=== PATIENT | female | born 1995 | race Caucasian/White ===

== ENCOUNTER 2016-07-28 13:17 | Inpatient (IN) | payer BC, OTHER ==
[2016-07-28] VITALS (7 sets, daily range): BP systolic 133–143; BP diastolic 82–103; PULSE 119–136; TEMP 36.7–37; O2SAT 95–100; Ht 152.4 cm; Wt 46.1 kg
[~2016-07-28] VITALS: Ht 152.4 cm; Wt 46.1 kg
[~2016-07-28 13:17] MED LIST: CEPH500C PO; MULT-506 PO
[2016-07-28] MEDS ORDERED: SODIUM CHLORIDE 0.9% 1000ML 1,000 ML IV STA ×2 (13:33→15:33)
[2016-07-28] MEDS ORDERED: LORAZEPAM 2 MG/ML 1 ML VIAL IV STA ×4 (13:33→16:43)
--- NOTE | 2016-07-28 13:41 | EMERGENCY ROOM VISIT NOTE ---
History Report prepared by Pramod: Arnav Frye Under the Supervision of: Dr. Akbar Osorio M.D. First contact with patient: 13:29 Chief Complaint: OVERDOSE (INTENTIONAL) Stated Complaint: INTENTIONAL OVERDOSE History of Present Illness The patient is a 21 year old female who presents to the Emergency Room with complaints of a sudden intentional overdose that occurred prior to arrival today. Per the patient's mother, the patient's boyfriend broke up with the patient today, and that was the precipitating factor for the overdose. The patient has no history of medication overdose. She states that she overdosed on Zoloft, Wellbutrin, and Ambien. The patient notes that she took 7 pills of one medication, and 5 pills and 2 pills of the others. She did not take any Tylenol or Motrin. She says that she did not drink or do any drugs today. She currently has some abdominal pain and nausea. The patient denies any falls or cuts. Per the patient's mother, the patient has expressed suicidal ideations recently due to fighting with her boyfriend for the past month. She has also been anxious and depressed due to the fighting. The patient has been seeing Dr. Huang regularly. She has never been admitted for depression before. HPI limited secondary to severe anxiety. Source of History: patient, parent History Limited By: other (severe anxiety) Onset: Prior to arrival Position: other (global - overdose) Quality: other (intentional) Timing: other (sudden) Associated Symptoms: + abdominal pain, + nausea Note: Associated symptoms: Denies any falls or cuts. Has been anxious and depressed for past month. Review of Systems ROS limited secondary to severe anxiety. Past Medical & Surgical Medical Problems: (1) No chronic problems (2) Suicide attempt by multiple drug overdose Family History No pertinent family history Social History Smoking Status: Never Smoker Marital Status: single Housing Status: lives with family Current/Historical Medications Scheduled Control Pills ( Control Pills), 1 TAB PO DAILY Bupropion (Wellbutrin), 100 MG PO DAILY Progesterone (Prometrium), 100 MG PO DAILY Pyridoxine (Vitamin B6), 100 MG PO DAILY Sertraline (Zoloft), 100 MG PO DAILY Zolpidem Tartrate (Ambien), 5 MG PO HS Allergies Coded Allergies: No Known Allergies (Unverified , NONE, 07/28/16) Physical Exam Vital Signs Date Time Temp Pulse Resp B/P Pulse Ox O2 Delivery O2 Flow Rate FiO2 07/28/16 16:14 129 20 138/91 98 Room Air 07/28/16 15:59 132 21 134/92 98 Room Air 07/28/16 15:45 139 22 140/99 98 Room Air 07/28/16 15:30 120 24 136/90 100 Room Air 07/28/16 15:14 132 24 130/93 100 Room Air 07/28/16 14:59 130 22 130/91 100 Room Air 07/28/16 14:44 118 25 129/98 100 Room Air 07/28/16 14:29 123 135/100 100 Room Air 07/28/16 14:20 126 22 100 Room Air 07/28/16 14:15 126 20 130/83 07/28/16 14:12 132/91 07/28/16 14:07 129 23 100 Room Air 07/28/16 13:59 133/97 07/28/16 13:58 134/93 07/28/16 13:58 19 134/93 100 Room Air 07/28/16 13:54 85/65 07/28/16 13:52 133 30 100 07/28/16 13:47 123 25 85/65 100 Room Air 07/28/16 13:45 142 25 153/142 100 Room Air 07/28/16 13:35 135 07/28/16 13:33 98 Room Air 07/28/16 13:30 145 25 145/107 100 Room Air 07/28/16 13:21 36.8 116 22 153/100 96 Room Air Physical Exam GENERAL: Patient is severely anxious appearing and in moderate distress. Shaking , crying, difficulty speaking due to severe anxiety. HEENT: No acute trauma, normocephalic atraumatic, mucous membranes moist, no nasal congestion, no scleral icterus. NECK: No stridor, no adenopathy, no meningismus, trachea is midline. LUNGS: No dyspnea. Clear to auscultation and equal bilaterally. No wheeze, no rhonchi. HEART: Tachycardic heart rate and regular rhythm. No murmurs, rubs, gallops appreciated. ABDOMEN: Soft, nontender, bowel sounds positive, no masses appreciated, no peritonitis. BACK: No midline tenderness, no CVA tenderness EXTREMITIES: Normal motion all extremities, no cyanosis, no edema. NEUROLOGIC: Alert and oriented, no acute motor or sensory deficits, no focal weakness, cranial nerves grossly intact. SKIN: No rash, no jaundice, no diaphoresis. Medical Decision & Procedures Laboratory Results 07/28/16 13:45 Red Blood Count 5.42, Mean Corpuscular Volume 80.1, Mean Corpuscular Hemoglobin 29.7, Mean Corpuscular Hemoglobin Concent 37.1, Mean Platelet Volume 9.1, Neutrophils (%) (Auto) 66.1, Lymphocytes (%) (Auto) 25.4, Monocytes (%) (Auto) 6.8, Eosinophils (%) (Auto) 0.6, Basophils (%) (Auto) 0.6, Neutrophils # (Auto) 4.30, Lymphocytes # (Auto) 1.65, Monocytes # (Auto) 0.44, Eosinophils # (Auto) 0.04, Basophils # (Auto) 0.04 07/28/16 13:45 Test 07/28/16 13:35 07/28/16 13:45 Prothrombin Time 10.8 SECONDS (9.0-12.0) Prothromb Time International Ratio 1.0 (0.9-1.1) White Blood Count 6.50 K/uL (4.8-10.8) Red Blood Count 5.42 M/uL (4.2-5.4) Hemoglobin 16.1 g/dL (12.0-16.0) Hematocrit 43.4 % (37-47) Mean Corpuscular Volume 80.1 fL (80-100) Mean Corpuscular Hemoglobin 29.7 pg (25-34) Mean Corpuscular Hemoglobin Concent 37.1 g/dl (32-36) Platelet Count 320 K/uL (130-400) Mean Platelet Volume 9.1 fL (7.4-10.4) Neutrophils (%) (Auto) 66.1 % Lymphocytes (%) (Auto) 25.4 % Monocytes (%) (Auto) 6.8 % Eosinophils (%) (Auto) 0.6 % Basophils (%) (Auto) 0.6 % Neutrophils # (Auto) 4.30 K/uL (1.4-6.5) Lymphocytes # (Auto) 1.65 K/uL (1.2-3.4) Monocytes # (Auto) 0.44 K/uL (0.11-0.59) Eosinophils # (Auto) 0.04 K/uL (0-0.5) Basophils # (Auto) 0.04 K/uL (0-0.2) RDW Standard Deviation 35.8 fL (36.4-46.3) RDW Coefficient of Variation 12.4 % (11.5-14.5) Immature Granulocyte % (Auto) 0.5 % Immature Granulocyte # (Auto) 0.03 K/uL (0.00-0.02) Urine Color YELLOW Urine Appearance CLOUDY (CLEAR) Urine pH 8.5 (4.5-7.5) Urine Specific [place] 1.017 (1.000-1.030) Urine Protein NEG (NEG) Urine Glucose (UA) NEG (NEG) Urine Ketones TRACE (NEG) Urine Occult Blood TRACE (NEG) Urine Nitrite NEG (NEG) Urine Bilirubin NEG (NEG) Urine Urobilinogen NEG (NEG) Urine Leukocyte Esterase TRACE (NEG) Urine WBC (Auto) 5-10 /hpf (0-5) Urine RBC (Auto) 0-4 /hpf (0-4) Urine Hyaline Casts (Auto) 1-5 /lpf (0-5) Urine Epithelial Cells (Auto) >30 /lpf (0-5) Urine Bacteria (Auto) 2+ (NEG) Urine Test NEG (NEG) Anion Gap 11.0 mmol/L (3-11) Est Creatinine Clear Calc Drug Dose 67.5 ml/min Estimated GFR () 108.9 Estimated GFR (Non- 93.9 BUN/Creatinine Ratio 8.9 (10-20) Calcium Level 9.8 mg/dl (8.5-10.1) Total Bilirubin 0.8 mg/dl (0.2-1) Aspartate Amino Transf (AST/SGOT) 13 U/L (15-37) Alanine Aminotransferase (ALT/SGPT) 17 U/L (12-78) Alkaline Phosphatase 72 U/L (45-117) Total Protein 8.4 gm/dl (6.4-8.2) Albumin 4.3 gm/dl (3.4-5.0) Globulin 4.1 gm/dl (2.5-4.0) Albumin/Globulin Ratio 1.0 (0.9-2) Thyroid Stimulating Hormone (TSH) 1.520 uIu/ml (0.300-4.500) Salicylates Level < 1.7 mg/dl (2.8-20) Urine Opiates Screen NEG (NEG) Urine Methadone, Qualitative NEG (NEG) Acetaminophen Level < 2 ug/ml (10-30) Urine Barbiturates NEG (NEG) Urine Phencyclidine (PCP) Level NEG (NEG) Ur Amphetamine/Methamphetamine NEG (NEG) MDMA (Ecstasy) Screen POS (NEG) Urine Benzodiazepines Screen POS (NEG) Urine Cocaine Metabolite NEG (NEG) Urine Marijuana (THC) NEG (NEG) Ethyl Alcohol mg/dL < 3.0 mg/dl (0-3) Laboratory results as reviewed by me. Medications Administered Medications (Trade) Dose Ordered Sig/Lizbet Route Start Time Stop Time Status Last Admin Dose Admin Sodium Chloride (Nss 1000ml) 1,000 ml @ 999 mls/hr Q1H1M STAT IV 07/28/16 13:33 07/28/16 14:33 DC 07/28/16 13:48 999 MLS/HR Lorazepam (Ativan Inj) 1 mg NOW STAT IV 07/28/16 13:33 07/28/16 13:35 DC 07/28/16 13:48 1 MG Lorazepam 1 mg 1 mg NOW STAT IV 07/28/16 14:01 07/28/16 14:02 DC 07/28/16 14:09 1 MG Sodium Chloride (Nss 1000ml) 1,000 ml @ 125 mls/hr Q8H STAT IV 07/28/16 15:33 07/28/16 17:57 DC 07/28/16 15:45 125 MLS/HR Lorazepam 1 mg 1 mg NOW STAT IV 07/28/16 15:33 07/28/16 15:34 DC 07/28/16 15:45 1 MG Sodium Chloride (Nss 1000ml) 1,000 ml @ 125 mls/hr Q8H IV 07/28/16 16:12 08/27/16 16:11 07/28/16 18:48 125 MLS/HR ECG Indication: other (overdose) Rate (beats per minute): 121 Rhythm: sinus tachycardia Findings: no ectopy, other (nonspecific ST depressions) Change: Second ECG: Sinus tachycardia at 124 bpm, no ectopy, no acute ischemic changes. Third ECG: Sinus tachycardia at 124 bpm, no ectopy, lateral mild ST depressions similar to previous, QTC of 451. ED Course 1330: The patient was evaluated in room A1. A complete history and physical exam was performed. 1333: Ordered Ativan 1 mg IV, NSS 1000 ml @ 999 mls/hr IV. 1342: Case management is talking to the patient's mother, and the patient is starting to become less anxious. 1400: I reevaluated the patient and she is mildly improved though is still very anxious. She admits to thinking about harming herself for several days. She denies anybody harming her. She denies any attempt at hurting herself other than today. 1439: I reevaluated the patient and she has calmed down slightly. 1527: I discussed the patient with Dr. Reid ALFARO hospitalist - he will evaluate the patient for further treatment. 1528: Upon reevaluation, the patient is stable. Discussed results and treatment plan with the patient. She verbalized understanding and agreement with the treatment plan. The patient will be evaluated for further management. 1533: Ordered NSS 1000 ml @ 125 mls/hr IV. I asked to have a repeat EKG one more time. 1717: Dr. [facility] - called me asking how the patient was doing. He requested to talk to a psychiatrist once she is medically cleared. Medical Decision Differential: Suicide Attempt, Mood Disorder, Poisoning, Medication OD, Narcotic OD, Tylenol OD, Salicylated OD, Prolonged QTc, Metabolic/Electrolyte imbalance, Trauma, Rhabdo, Infectious, amongst other pathologies entertained. Severely upset and anxious 21 yr old female arrives following polysubstance ingestion. Multiple rounds Ativan to help calm down and given fluid boluses. Repeat EKG shows mildly prolonged QTC compared to previous though not severe enough to require bicarb and repeat again with improvement. Lab unremarkable. Not intoxated. No other reported ingestions. She will need medical clearance first which is not capable in ED and thus wshe will come in to hospital and then have eval by psychiatry. 302 petition by Mother and Psych Seo Strategist in ED. Patient makes clear she wants to . Consults Time Called: 1520 Consulting Physician: Dr. Reid ALFARO hospitalist Returned Call: 1527 I discussed the patient with Dr. Reid ALFARO hospitalist - he will evaluate the patient for further treatment. Additional Consults: Time Called: -- Consulted Physician: Dr. [facility] Returned Call: [phone] Additional Comments: Dr. [facility] - called me asking how the patient was doing. He requested to talk to a psychiatrist once she is medically cleared. Impression Primary Impression: Suicide attempt by multiple drug overdose Additional Impressions: EKG abnormalities Anxiety Depressed Scribe Attestation The scribe's documentation has been prepared under my direction and personally reviewed by me in its entirety. I confirm that the note above accurately reflects all work, treatment, procedures, and medical decision making performed by me. Departure Information Dispostion Being Evaluated By Hospitalist Referrals No Doctor, Assigned (PCP) Patient Instructions My [facility] Problem Qualifiers Primary Impression: Suicide attempt by multiple drug overdose Encounter type: initial encounter Qualified Codes: T50.902A - Poisoning by unspecified drugs, medicaments and biological substances, intentional self-harm , initial encounter Additional Impressions: Depressed Depression Type: major depressive disorder Major depression recurrence: recurrent Active/Remission status: currently active Major depression episode severity: severe Psychotic features: without psychotic features Qualified Codes: F33.2 - Major depressive disorder, recurrent severe without psychotic features
[2016-07-28] MEDS ORDERED: PYRI100T4 PO (13:43)
[2016-07-28] MEDS ORDERED: PROG100C6 PO (13:43)
[2016-07-28] MEDS ORDERED: SERT-234 PO (13:43)
[2016-07-28] MEDS ORDERED: ZOLP5TAB PO (13:43)
[2016-07-28] MEDS ORDERED: BUPR-83 PO (13:43)
[2016-07-28] MEDS ORDERED: BCPILLS PO (13:43)
[2016-07-28 13:56] LABS: BASO % 0.6 %; BASO ABS # 0.04 K/uL (0-0.2); COMPLETE YES; EOS % 0.6 %; HEMATOCRIT 43.4 % (37-47); IG% 0.5 %; LYMPH % 25.4 %; LYMPH ABS # 1.65 K/uL (1.2-3.4); MEAN CELL VOLUME 80.1 fL (80-100); MEAN CORPUSCULAR HEMOGLOBIN 29.7 pg (25-34); MEAN CORPUSCULAR HGB CONC 37.1 g/dl (32-36); MEAN PLATELET VOLUME 9.1 fL (7.4-10.4); MONO % 6.8 %; NEUT % 66.1 %; PLATELET COUNT 320 K/uL (130-400); RED BLOOD COUNT 5.42 M/uL (4.2-5.4)
[2016-07-28 14:14] LABS: BUN/CREATININE RATIO 8.9 (10-20); CALCIUM 9.8 mg/dl (8.5-10.1); CREATININE 0.88 mg/dl (0.60-1.20); POTASSIUM 3.6 mmol/L (3.5-5.1)
[2016-07-28 14:15] LABS: ACETAMINOPHEN < 2 ug/ml (10-30); URINE APPEARANCE CLOUDY (CLEAR); URINE BILIRUBIN NEG (NEG); URINE COLOR YELLOW; URINE EPITHELIAL CELL AUTO >30 /lpf (0-5); URINE NITRITE NEG (NEG); URINE PH 8.5 (4.5-7.5); URINE SPECIFIC GRAVITY 1.017 (1.000-1.030); UROBILINOGEN NEG (NEG); ZZUR CULT IF INDIC CLEAN CATCH YES
[2016-07-28 14:19] LABS: MANUAL MICROSCOPIC REQUIRED? NO; REVIEW REQ? NO
[2016-07-28 14:25] LABS: BENZODIAZEPINE, URINE POS (NEG); COCAINE,URINE NEG (NEG); PHENCYCLIDINE, URINE NEG (NEG); THYROID STIMULATING HORMONE 1.52 uIu/ml (0.300-4.500)
[2016-07-28] MEDS ORDERED: ACETAMINOPHEN 325 MG TAB PO PRN (16:15)
[2016-07-28] MEDS ORDERED: ENOXAPARIN 40 MG/0.4 ML SYR SQ SCH (16:15)
[2016-07-28 16:46] LABS: PROTHROMBIN TIME (PATIENT) 10.8 SECONDS (9.0-12.0)
--- NOTE | 2016-07-28 17:00 | History and Physical ---
History & Physical Date & Time of Service: Jul 28, 2016 at 16:33 Chief Complaint: Intentional Overdose Primary Care Physician: Db Huang M.D. History of Present Illness Source: patient, parent (mother and father at bedside), hospital records This is a 21 y/o female with a history of anxiety and depression who presented to the ED on 07/28 with an intentional multiple drug overdose. The patient has been dealing with anxiety and depression the last month due to fighting with her boyfriend. The patient has no previous psychiatric history prior to June of this year. She started seeing Dr. Huang in mid June and was prescribed Zoloft, Wellbutrin and Ambien. Today, the patient's boyfriend broke up with her, which is what precipitated her suicide attempt. The patient states that she took 5 of her Zoloft 100 mg tablets, 7 of her Wellbutrin 100 mg tablets, and 2 of her Ambien 5 mg tablets. The patient denies any illicit drug use or alcohol. The patient took these medications around 1300 today. Upon arrival to the ED, the patient was tachycardic with heart rate ranging from 120s to 140s. Otherwise vital signs were stable. Urine drug screen was positive for benzodiazepines and ecstasy. The patient states that earlier today she had a headache that has now resolved. She states that she is currently lightheaded and complains of palpitations as well as nausea. She denies any vomiting. She states that she has intermittent shortness of breath when she is feeling more anxious. The patient denies fevers, chills, sweats, changes in vision, chest pain, claudication, cough, wheezing, vomiting, abdominal pain, dysuria, hematuria, urinary retention, paralysis, weakness, numbness and tingling. Past Medical/Surgical History Medical Problems: Anxiety and depression--recently diagnosed June 2016 Family History Anxiety disorder Breast cancer Social History Smoking Status: Never Smoker Smokeless Tobacco Use: No Alcohol Use: none Drug Use: other (reports none, but UDS positive for ecstacy) Marital Status: single Housing status: lives alone (lives in apartment off campus) Occupational Status: [employer] student Allergies Coded Allergies: No Known Allergies (Unverified , NONE, 07/28/16) Home Medications Scheduled Control Pills ( Control Pills), 1 TAB PO DAILY Bupropion (Wellbutrin), 100 MG PO DAILY Progesterone (Prometrium), 100 MG PO DAILY Pyridoxine (Vitamin B6), 100 MG PO DAILY Sertraline (Zoloft), 100 MG PO DAILY Zolpidem Tartrate (Ambien), 5 MG PO HS Review of Systems Constitutional: + fatigue, + problem reported (insomnia), No chills, No fever, No sweats Eyes: No diplopia, No eye pain, No worsening of vision ENT: No hearing loss, No sore throat, No trouble swallowing Respiratory: + shortness of breath (intermittent, associated with anxiety), No cough, No wheezing Cardiovascular: + palpitations, No chest pain, No claudication Abdomen: + nausea, No pain, No vomiting Musculoskeletal: No calf pain, No joint pain, No muscle pain Genitourinary - Female: No dysuria, No hematuria, No urinary retention Neurologic: No numbness/tingling, No paralysis, No weakness Integumentary: No color change, No itch, No rash Physical Exam Vital Signs Date Time Temp Pulse Resp B/P Pulse Ox O2 Delivery O2 Flow Rate FiO2 07/28/16 15:59 132 21 134/92 98 Room Air 07/28/16 15:45 139 22 140/99 98 Room Air 07/28/16 15:30 120 24 136/90 100 Room Air 07/28/16 15:14 132 24 130/93 100 Room Air 07/28/16 14:59 130 22 130/91 100 Room Air 07/28/16 14:44 118 25 129/98 100 Room Air 07/28/16 14:29 123 135/100 100 Room Air 07/28/16 14:20 126 22 100 Room Air 07/28/16 14:15 126 20 130/83 07/28/16 14:12 132/91 07/28/16 14:07 129 23 100 Room Air 07/28/16 13:59 133/97 07/28/16 13:58 134/93 07/28/16 13:58 19 134/93 100 Room Air 07/28/16 13:54 85/65 07/28/16 13:52 133 30 100 07/28/16 13:47 123 25 85/65 100 Room Air 07/28/16 13:45 142 25 153/142 100 Room Air 07/28/16 13:35 135 07/28/16 13:33 98 Room Air 07/28/16 13:30 145 25 145/107 100 Room Air 07/28/16 13:21 36.8 116 22 153/100 96 Room Air General Appearance: WD/WN, + moderate distress (shaking, clearly very anxious) , + thin Head: normocephalic, atraumatic Eyes: normal inspection, PERRL, EOMI, + pertinent finding (pupils dilated bilaterally) ENT: normal ENT inspection, hearing grossly normal, pharynx normal Neck: supple, no JVD, trachea midline Respiratory/Chest: lungs clear, normal breath sounds, no respiratory distress Cardiovascular: no gallop, no murmur, + tachycardia Abdomen/GI: normal bowel sounds, non tender, soft Extremities/Musculoskelatal: no calf tenderness, normal capillary refill, no pedal edema Neurologic/Psych: alert, oriented x 3, + pertinent finding (very anxious, shaking) Skin: normal color, warm/dry, no rash Diagnostics Laboratory Results Results Past 24 Hours Test 07/28/16 13:45 Range/Units White Blood Count 6.50 4.8-10.8 K/uL Red Blood Count 5.42 4.2-5.4 M/uL Hemoglobin 16.1 12.0-16.0 g/dL Hematocrit 43.4 37-47 % Mean Corpuscular Volume 80.1 80-100 fL Mean Corpuscular Hemoglobin 29.7 25-34 pg Mean Corpuscular Hemoglobin Concent 37.1 32-36 g/dl Platelet Count 320 130-400 K/uL Mean Platelet Volume 9.1 7.4-10.4 fL Neutrophils (%) (Auto) 66.1 % Lymphocytes (%) (Auto) 25.4 % Monocytes (%) (Auto) 6.8 % Eosinophils (%) (Auto) 0.6 % Basophils (%) (Auto) 0.6 % Neutrophils # (Auto) 4.30 1.4-6.5 K/uL Lymphocytes # (Auto) 1.65 1.2-3.4 K/uL Monocytes # (Auto) 0.44 0.11-0.59 K/uL Eosinophils # (Auto) 0.04 0-0.5 K/uL Basophils # (Auto) 0.04 0-0.2 K/uL RDW Standard Deviation 35.8 36.4-46.3 fL RDW Coefficient of Variation 12.4 11.5-14.5 % Immature Granulocyte % (Auto) 0.5 % Immature Granulocyte # (Auto) 0.03 0.00-0.02 K/uL Urine Color YELLOW Urine Appearance CLOUDY CLEAR Urine pH 8.5 4.5-7.5 Urine Specific [place] 1.017 1.000-1.030 Urine Protein NEG NEG Urine Glucose (UA) NEG NEG Urine Ketones TRACE NEG Urine Occult Blood TRACE NEG Urine Nitrite NEG NEG Urine Bilirubin NEG NEG Urine Urobilinogen NEG NEG Urine Leukocyte Esterase TRACE NEG Urine WBC (Auto) 5-10 0-5 /hpf Urine RBC (Auto) 0-4 0-4 /hpf Urine Hyaline Casts (Auto) 1-5 0-5 /lpf Urine Epithelial Cells (Auto) >30 0-5 /lpf Urine Bacteria (Auto) 2+ NEG Urine Test NEG NEG Sodium Level 137 136-145 mmol/L Potassium Level 3.6 3.5-5.1 mmol/L Chloride Level 105 98-107 mmol/L Carbon Dioxide Level 21 21-32 mmol/L Anion Gap 11.0 3-11 mmol/L Blood Urea Nitrogen 8 7-18 mg/dl Creatinine 0.88 0.60-1.20 mg/dl Est Creatinine Clear Calc Drug Dose 67.5 ml/min Estimated GFR () 108.9 Estimated GFR (Non- 93.9 BUN/Creatinine Ratio 8.9 10-20 Random Glucose 84 70-99 mg/dl Calcium Level 9.8 8.5-10.1 mg/dl Total Bilirubin 0.8 0.2-1 mg/dl Aspartate Amino Transf (AST/SGOT) 13 15-37 U/L Alanine Aminotransferase (ALT/SGPT) 17 12-78 U/L Alkaline Phosphatase 72 45-117 U/L Total Protein 8.4 6.4-8.2 gm/dl Albumin 4.3 3.4-5.0 gm/dl Globulin 4.1 2.5-4.0 gm/dl Albumin/Globulin Ratio 1.0 0.9-2 Thyroid Stimulating Hormone (TSH) 1.520 0.300-4.500 uIu/ml Salicylates Level < 1.7 2.8-20 mg/dl Urine Opiates Screen NEG NEG Urine Methadone, Qualitative NEG NEG Acetaminophen Level < 2 10-30 ug/ml Urine Barbiturates NEG NEG Urine Phencyclidine (PCP) Level NEG NEG Ur Amphetamine/Methamphetamine NEG NEG MDMA (Ecstasy) Screen POS NEG Urine Benzodiazepines Screen POS NEG Urine Cocaine Metabolite NEG NEG Urine Marijuana (THC) NEG NEG Ethyl Alcohol mg/dL < 3.0 0-3 mg/dl Microbiology Results 07/28/16 Urine Culture, Received Pending EKG Reviewed EKG and agree with interpretation as follows: 121 bpm, sinus tachycardia, prolonged QT (443 ms) 124 bpm, sinus tachycardia, prolonged QT (485) Impression Assessment and Plan 21 y/o female with a history of anxiety and depression who presented to the ED on 07/28 with an intentional multiple drug overdose. Patient attempted suicide after her boyfriend broke up with her today. She was recently diagnosed with anxiety and depression in June of this year following frequent fights with her boyfriend. She has been following very closely with Dr. Huang in the last month and was started on Zoloft, Wellbutrin and Ambien. The patient reports taking 7 Wellbutrin 100 mg, 5 Zoloft 100 mg, and 2 Ambien 5 mg. She denies any drug or alcohol use, however, her urine drug screen was positive for benzodiazepines and ecstasy. Patient arrived to the ED tachycardic with heart rate ranging from 120s to 140s. EKG shows no ischemic changes, but a prolonged QT interval. Patient given IV Ativan and fluid bolus in the ED. Suicide attempt with multiple drug overdose/history of anxiety, depression-- patient received 1 L NSS bolus in the ED, still tachycardic in 130s to 140s -Admit to ICU -Ativan 2 mg IV 1 now -Aggressive IV fluids with NSS at 125 cc/hr -Patient does not admit to benzodiazepine use. Unknown how much she is taking. Will place seizure precautions -Suicide checks every 15 minutes -EKGs q am and prn with chest pain -Consult psychiatry, appreciate recs H/o anxiety/depression -Hold home, Zoloft, Wellbutrin and Ambien for now DVT prophylaxis -Heparin 5000 units SC q12h -DAVID Escalantes Code Status -Level I, FULL RESUSCITATION STATUS I agree with PA assessment and plan and have seen and examined pt myself Suicide attempt with polysubstance OD Tachycardia noted likely from anxiety Cont ativan PRN Admit to ICU Psych consulted Monitor QT interval at this time Level of Care Critical Care Resuscitation Status FULL RESUSCITATION VTE Prophylaxis VTE Risk Assessment Done? Y/N: Yes Risk Level: Low Given or contraindicated: Unfractionated heparin SQ, T.E.D. Stockings, SCD's Note Total Time: Critical Care 30 - 74 minutes
--- NOTE | 2016-07-28 18:37 | CRITICAL CARE CONSULTATION ---
DATE OF CONSULTATION: 07/28/2016 CHIEF COMPLAINT: Overdose. HISTORY OF PRESENT ILLNESS: The patient is a 21-year-old [employer] student who presented to the Emergency Department after taking seven 100 mg tablets of Wellbutrin and five 100 mg tablet of Zoloft and two 5 mg tablets of Ambien. She has a history of depression and has been seeing Dr. Huang since June at which time she was prescribed Zoloft. As recently as last week, she was prescribed Wellbutrin as well. She has been seeing Dr. Huang weekly and sometimes twice per week. She has been feeling depressed and upset about her relationship with her boyfriend. She and her boyfriend had an argument today and around 1:00 p.m., she took the pills mentioned above. She then called her mother and presented to the Emergency Department. In the Emergency Department, she was tachycardic and tremulous. She had 1 mg of Ativan x3 doses as well as 1 liter of normal saline. Another 2 mg of IV Ativan was also ordered. She admits to having thoughts of harming herself over the past several days. She has never taken an overdose of medications before and denies any additional toxic ingestion was surrounding this event. She denies any physical abuse. PAST MEDICAL HISTORY: None. PAST SURGICAL HISTORY: None. ALLERGIES: No known drug allergies. OUTPATIENT MEDICATIONS: Wellbutrin 100 mg daily, Zoloft 100 mg daily, oral contraceptive pills 1 daily, progesterone 10 mg daily, vitamin B6 100 mcg daily and Ambien 5 mg at bedtime. 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 She lives alone in an apartment and recently her best friend and roommate moved to [place]. She has a new puppy as AlfonsoEinspect. She does not drink or smoke. FAMILY HISTORY: Noncontributory. REVIEW OF SYSTEMS: She has felt nauseated over the past several days and attributed it to the addition of the Wellbutrin to her medication regimen. She sometimes feels like she cannot eat because her esophagus does not feel like it is pushing the food down. She denies any weight loss or weight gain. She denies fevers, chills, or diarrhea. She denies chest pain, shortness of breath. She denies abdominal pain. Additional review of systems is negative or noncontributory in a 12-point system. PHYSICAL EXAMINATION: GENERAL: This is a thin, young woman sitting in bed, tremulous and quite talkative. VITAL SIGNS: Temperature is 36.8, heart rate 134, respiratory rate 21, blood pressure 115/84, oxygen saturation 97% on room air. HEENT: Pupils are dilated at approximately 10 mm bilaterally. There is no nystagmus. Oral mucosa is moist. No adenopathy. LUNGS: Clear to auscultation bilaterally. No rales, rhonchi or wheezes. HEART: Tachycardic, regular, no murmurs. ABDOMEN: Soft, nondistended, nontender. Active bowel sounds. EXTREMITIES: Warm. No edema. NEUROLOGIC: She is awake, alert, oriented to person and place. She usually carries on a conversation, is able to move about the bed without difficulty. LABORATORY DATA: Sodium 137, potassium 3.6, chloride 105, CO2 21, BUN 8, creatinine 0.88 and calcium 9.8. AST 13, ALT 17, total protein 8.4. PT 10.8, INR 1. White blood cell count 6.5, hemoglobin 16.1, hematocrit 43.4, platelets 320. Urine tox is positive for ecstasy and benzodiazepines. Salicylate less than 1.7, acetaminophen less than 2. Alcohol less than 3. The remainder of his urine tox screen is pending. EKG shows sinus tachycardia with nonspecific ST-T wave changes. IMPRESSION: 1. Polypharmacy overdose and suicide attempt. 2. Sinus tachycardia which may be secondary to the overdose. She also has a significant element of anxiety, I believe. 3. History of depression. PLAN: 1. Observe in the intensive care unit and follow EKGs. Presently, her corrected QT interval is acceptable. 2. We will gently hydrate with IV fluids. 3. Watch for any signs of serotonin syndrome, although the dose that she took of her Zoloft is relatively low. Treat with Ativan if needed. 4. Consult the psychiatry service. 5. Provide deep thrombosis prophylaxis with subcutaneous heparin or Lovenox. 6. Treat nausea symptomatically and with Zofran. 7. Watch for any respiratory compromise after the additional Ativan she has received. 8. I see per notes that 302 petition has been started. She should not be allowed to leave the hospital against medical advice. I discussed her care in detail with her mother who was at the bedside. Questions were answered. TONY
[2016-07-28] MEDS: SODIUM CHLORIDE 0.9% 1000ML 1,000 ML IV SCH ×2 (18:48→23:09)
[2016-07-28] MEDS ORDERED: LORAZEPAM 2 MG/ML 1 ML VIAL IV PRN (19:15)
[2016-07-28] MEDS: HEPARIN SOD 5000 UNIT/0.5 ML CARP SQ SCH (20:37)
[2016-07-29] VITALS (13 sets, daily range): BP systolic 128–144; BP diastolic 66–117; PULSE 68–144; TEMP 36.6–36.7; O2SAT 94–100
[2016-07-29 05:42] LABS: HEMATOCRIT 36.2 % (37-47); MEAN CELL VOLUME 83.2 fL (80-100); MEAN CORPUSCULAR HEMOGLOBIN 29.2 pg (25-34); MEAN CORPUSCULAR HGB CONC 35.1 g/dl (32-36); MEAN PLATELET VOLUME 9.1 fL (7.4-10.4); PLATELET COUNT 231 K/uL (130-400); RED BLOOD COUNT 4.35 M/uL (4.2-5.4)
[2016-07-29 06:22] LABS: CALCIUM 8.2 mg/dl (8.5-10.1); CREATININE 0.7 mg/dl (0.60-1.20); POTASSIUM 3.9 mmol/L (3.5-5.1)
[2016-07-29] MEDS: HEPARIN SOD 5000 UNIT/0.5 ML CARP SQ SCH (09:00)
--- NOTE | 2016-07-29 11:03 | CRITICAL CARE PROGRESS NOTE ---
DATE: 07/29/2016 GENERAL INFORMATION: The patient's care was discussed in detail on multidisciplinary rounds today. She did not sleep most of the night but was cooperative. When I left last evening, she was very upset and beginning to resist staying in the hospital. She did not receive any Ativan overnight. She reports she feels a little bit lightheaded when she gets up to walk to the toilet. She may be a little bit unsteady on her feet based on the nursing reports. She denies shortness of breath, physical pain of any kind. She is urinating and eating some. By her report, her mood is a little bit better. She had questions about her antidepressants being resumed. PHYSICAL EXAMINATION: VITAL SIGNS: Maximum temperature 37, heart rate 108-135, respiratory rate 15-27, blood pressure 129-134/82-101. Oxygen saturation is 97% on room air. A 24-hour fluid balance is negative 125 mL. GENERAL: She is awake, alert and in no distress. HEENT: Pupils are dilated and similar to yesterday. There is no nystagmus, no facial droop. Tongue is midline. LUNGS: Clear to auscultation bilaterally. No rales, rhonchi or wheezes. HEART: Tachycardic, regular, no murmurs. ABDOMEN: Benign. EXTREMITIES: Warm. No edema. NEUROLOGIC: She is easily able to carry on a conversation. She moves all 4 extremities and moves about the bed without difficulty. LABORATORY DATA: White blood cell count 5.4, hemoglobin 12.7, hematocrit 36.2, platelets 231. Sodium 141, potassium 3.9, chloride 109, CO2 22, BUN 5, creatinine 0.7. Calcium 8.2, blood sugar 68. Urine tox screen positive for ecstasy and benzodiazepines. Reference lab toxicology screen pending. MEDICATIONS: Acetaminophen, subcutaneous heparin, p.r.n. Ativan and normal saline. DATA: EKG was reviewed and showed sinus tachycardia with PAC's. Nonspecific ST-T wave changes, corrected QT interval is 440 milliseconds. IMPRESSION: 1. Polypharmacy overdose. 2. Suicidal ideation. 3. Urine drug screen positive for benzodiazepines and ecstasy. The ecstasy may be explained by her ingestion of Wellbutrin. Additionally, she received benzodiazepines in the Emergency Department. Reference lab testing is pending. 4. Sinus tachycardia, improved. 5. Lightheadedness, she has no focal neurologic signs. She is not hypovolemic. This may be secondary to the ingestion. 5. History of depression. PLAN: 1. Discontinue IV fluids. 2. Out of bed to chair and walk in the room. 3. Await further recommendations from the psychiatry service. 4. I expect she will be medically stable for transfer to mental health later today. I discussed this with both she and her mother. TONY
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
--- NOTE | 2016-07-29 18:57 | Discharge Instructions ---
Discharge Instructions Date of Service Jul 29, 2016. Admission Reason for Admission: Suicide Attempt By Multiple Drug Overdose Discharge Discharge Diagnosis / Problem: suicide attempt drug overdose Discharge Goals Goal(s): Prevent Disease Progression Activity Recommendations Activity Limitations: per Instructions/Follow-up section . Current Hospital Diet Patient's current hospital diet: Regular Diet Discharge Diet Recommended Diet: Regular Diet Pending Studies Studies pending at discharge: no Medical Emergencies . Who to Call and When: Medical Emergencies: If at any time you feel your situation is an emergency, please call 911 immediately. . Non-Emergent Contact Non-Emergency issues call your: Primary Care Provider . . "Provider Documentation" section prepared by Winston Perales. VTE Core Measure Inpt VTE Proph given/why not?: Unfractionated heparin VISH, Patti Tamayo, SCD 's
[2016-08-01 19:36] LABS: HYDROXYETHYLFLURAZEPAM CONF NEGATIVE NG/ML (CUTOFF=50); HYDROXYMIDAZOLAM NEGATIVE NG/ML (CUTOFF=50); HYDROXYTRIAZOLAM CONF NEGATIVE NG/ML (CUTOFF=50); TEMAZEPAM CONF NEGATIVE NG/ML (CUTOFF=50)
--- NOTE | 2016-08-09 18:26 | Discharge Summary ---
Discharge Summary Date of Service Aug 09, 2016. Discharge Summary Admission Date: Jul 28, 2016 at 16:29 Discharge Date: Jul 29, 2016 Discharge Disposition: Acute care mental health Principal Diagnosis: Polypharmacy Drug Overdose Suicide attempt Problems/Secondary Diagnoses: Depression Anxiety Consultations: Dr. Jessica Psychiatry Dr. Rajput Intensive Care Medication Reconciliation Continued Medications: Control Pills ( Control Pills) Tab 1 TAB PO DAILY, TAB Discontinued Medications: Bupropion (Wellbutrin) 100 Mg Tab 100 MG PO DAILY, TAB Progesterone (Prometrium) 100 Mg Cap 100 MG PO DAILY, CAP Pyridoxine (Vitamin B6) 100 Mg Tab 100 MG PO DAILY, TAB Sertraline (Zoloft) 100 Mg Tab 100 MG PO DAILY, TAB Zolpidem Tartrate (Ambien) 5 Mg Tab 5 MG PO HS, TAB Hospital Course (1) Suicide attempt by multiple drug overdose The patient is a 21 y.o who presented to the hospital after taking 7 100mg wellbutrin, 5 tablets of zoloft, and 2 ambien, as a suicide attempt. She was admitted to the intensive care unit and Dr. Steven saw her for intensive care. She received supportive therapy with iv hydration, antiemetics, and ativan for anxiety. She was monitored for adverse affects of her polypharmacy overdose. The patient was than evaluated by the psychiatry team of Dr. Jessica. She was found to be unsafe for release because of her suicide attempt and depression and offered a voluntary commitment. The patient refused and a 302 process was followed. There were no inpatient beds at our facility and therefore a search for an appropriate inpatient facility was performed and when she was medically cleared by Dr. Steven she was transferred for inpatient psychiatric care on a 302 , in medically stable condition. (2) Anxiety (3) Depressed Total Time Spent: Greater than 30 minutes This includes examination of the patient, discharge planning, medication reconciliation, and communication with other providers. Discharge Instructions Please refer to the electronic Patient Visit Report (Discharge Instructions) for additional information. Follow-Up Dr. Db Huang as directed by after discharge from inpatient psychiatry Problem Qualifiers (1) Suicide attempt by multiple drug overdose: Encounter type: initial encounter Qualified Codes: T50.902A - Poisoning by unspecified drugs, medicaments and biological substances, intentional self-harm , initial encounter (2) Depressed: Depression Type: major depressive disorder Major depression recurrence: recurrent Active/Remission status: currently active Major depression episode severity: severe Psychotic features: without psychotic features Qualified Codes: F33.2 - Major depressive disorder, recurrent severe without psychotic features
== END 2016-07-29 19:00 | DRG 918 ==
LOC: ENRESERVTM → ENRESERVDT → C.EDB 13:18 → C.MSICU 16:29 → EEVIPCON 16:29
PROVIDERS: ADMIT Hospitalist; ATTEND Hospitalist
DX: T50.902A Poisoning by unspecified drugs, medicaments and biological substances, intentional self-harm, initial encounter (principal); F33.2 Major depressive disorder, recurrent severe without psychotic features; R45.851 Suicidal ideations; R07.9 Chest pain, unspecified; F41.9 Anxiety disorder, unspecified; R00.0 Tachycardia, unspecified; R82.5 Elevated urine levels of drugs, medicaments and biological substances; R42 Dizziness and giddiness; I45.81 Long QT syndrome; Z79.899 Other long term (current) drug therapy; Z79.3 Long term (current) use of hormonal contraceptives

== ENCOUNTER → 2017-03-12 | Outpatient (CLI) | payer BC ==
[~2017-03-12] MED LIST changes: +BCPILLS PO; -CEPH500C PO; -MULT-506 PO
--- NOTE | 2017-03-12 15:16 | ECHOCARDIOGRAM REPORT ---
*NOTICE TO RECEIVING REPUBLICAN AGENCY This information is strictly Confidential and protected under [place] law. [place] law prohibits you from making any further disclosure of this information unless further disclosure is expressly permitted by the written consent of the person to whom it pertains or is authorized by law. A general authorization for the release of medical or other information is not sufficient for this purpose. Hospital accepts no responsibility if the information is made available to any other person, INCLUDING THE PATIENT. Interpretation Summary * Name: ANA LUX Study Date: 03/12/2017 12:58 PM BP: 132/60 mmHg * Patient Location: [facility] HR: 73 * : 1995 (M/d/yyyy) Gender: Female Height: 61 in * Age: 21 yrs Ethnicity: CA Weight: 100 lb * Ordering Physician: Db Huang * Referring Physician: Db Huang * Performed By: Keven Hoang RCS * * Reason For Study: Syncope * BSA: 1.4 m2 * -- Conclusions -- * 1. Normal LV size and wall thickness. * 2. Normal LV systolic function. LVEF 60-65%. No regional wall motion abnormalities. * 3. Normal RV size and function. * 4. No significant valvular pathology. * 5. Normal estimated RA and PA pressures. * 6. No prior studies for comparison. Procedure Details * A complete two-dimensional transthoracic echocardiogram was performed (2D, M-mode, Doppler and color flow Doppler). Left Ventricle * The left ventricle is grossly normal size. * There is normal left ventricular wall thickness. * Ejection Fraction = 60-65%. * No regional wall motion abnormalities noted. Right Ventricle * The right ventricle is grossly normal size. * The right ventricular systolic function is normal as assessed by tricuspid annular plane systolic excursion (TAPSE) (normal >1.5 cm). Atria * The left atrial size is normal. * Right atrial size is normal. * No ASD detected; PFO is not assessed. Mitral Valve * The mitral valve is grossly normal. * There is no mitral valve stenosis. * There is trace mitral regurgitation. Tricuspid Valve * The tricuspid valve is not well visualized, but is grossly normal. * There is no tricuspid stenosis. * There is trace tricuspid regurgitation. Aortic Valve * The aortic valve opens well. * The aortic valve is trileaflet. * No hemodynamically significant valvular aortic stenosis. * There is no significant aortic regurgitation. Pulmonic Valve * The pulmonary valve is inadequately visualized, but the Doppler data is adequate for interpretation. * Pulmonic stenosis is absent. * Trace pulmonic valvular regurgitation. Great Vessels * The aortic root and proximal ascending aorta are normal sized. Pericardium/Pleural * There is no pericardial effusion. Great Vessels * Normal inferior vena cava size and collapsability with sniff indicates a normal right atrial pressure of 3 mmHg * There is no evidence of pulmonary hypertension. The PA systolic pressure is less than 36 mmHg. MMode 2D Measurements and Calculations IVSd 0.78 cm IVSs 1.1 cm LVIDd 3.9 cm LVIDs 2.5 cm LVPWd 0.77 cm LVPWs 1.1 cm IVS/LVPW 1.0 FS 35.2 % EDV(Teich) 65.3 ml ESV(Teich) 22.7 ml EF(Teich) 65.3 % EDV(cubed) 58.7 ml ESV(cubed) 15.9 ml EF(cubed) 72.8 % % IVS thick 45.9 % % LVPW thick 41.4 % LV mass(C)d 85.2 grams LV mass(C)dI 60.5 grams/m\S\2 LV mass(C)s 75.9 grams LV mass(C)sI 53.9 grams/m\S\2 SV(Teich) 42.6 ml SI(Teich) 30.3 ml/m\S\2 SV(cubed) 42.7 ml SI(cubed) 30.4 ml/m\S\2 Ao root diam 2.4 cm Ao root area 4.6 cm\S\2 ACS 1.1 cm LA dimension 2.2 cm asc Aorta Diam 2.3 cm LA/Ao 0.91 EDV(MOD-sp4) 97.0 ml ESV(MOD-sp4) 33.4 ml EF(MOD-sp4) 65.5 % EDV(MOD-sp2) 107.1 ml ESV(MOD-sp2) 42.3 ml EF(MOD-sp2) 60.5 % SV(MOD-sp4) 63.6 ml SI(MOD-sp4) 45.2 ml/m\S\2 SV(MOD-sp2) 64.8 ml SI(MOD-sp2) 46.1 ml/m\S\2 Doppler Measurements and Calculations MV E max jorgito 136.3 cm/sec MV A max jorgito 53.5 cm/sec MV E/A 2.5 MV P1/2t max jorgito 146.9 cm/sec MV P1/2t 77.3 msec MVA(P1/2t) 2.8 cm\S\2 MV dec slope 556.6 cm/sec\S\2 MV dec time 0.15 sec Ao V2 max 121.3 cm/sec Ao max PG 5.9 mmHg Ao max PG (full) 0.86 mmHg LV V1 max PG 5.0 mmHg LV V1 max 112.2 cm/sec PA V2 max 96.3 cm/sec PA max PG 3.7 mmHg PI max jorgito 151.0 cm/sec PI max PG 9.1 mmHg PI dec slope 276.9 cm/sec\S\2 PI P1/2t 159.7 msec TR max jorgito 179.9 cm/sec
== END | disposition home or self-care (01) ==
LOC: C.CPL 12:36
PROVIDERS: ATTEND Family Medicine
DX: R55 Syncope and collapse (principal)